=== PATIENT | male | born 1990 | race American Indian/Alaskan Native ===

== ENCOUNTER 2020-11-07 01:08 | Emergency (ER) | payer SELFPAY ==
[2020-11-07] MEDS ORDERED: PENICILLIN G BENZATHINE 1.2 MILLION UNIT/2 ML INJ IM ONE (04:24)
--- NOTE | 2020-11-07 04:27 | Emergency Department Report ---
ED General Adult HPI - General Chief complaint: Urogenital-Male Stated complaint: GROIN SWELLING/IRRITATION Time Seen by Provider: 11/07/20 04:17 Source: patient Mode of arrival: Ambulatory Limitations: No Limitations - History of Present Illness Initial comments: 30-year-old male patient presents to the emergency department with complaints of left testicular pain and penile lesions starting 2 days ago. No preceding fall, trauma, or injury. Patient is sexually active. He does not use barrier protection. He has not taken any medication or used any topical treatments. Denies fever, chills, nausea, vomiting, diarrhea, abdominal pain, penile discharge, painful urination, hematuria. Denies all other complaints at this time. - Related Data Allergies Allergy/AdvReac Type Severity Reaction Status Date / Time No Known Allergies Allergy Unverified 11/07/20 02:54 ED Review of Systems ROS: Stated complaint: GROIN SWELLING/IRRITATION Other details as noted in HPI Other: GENERAL: Negative for fever. CARDIOVASCULAR: Negative for chest pain. PULMONARY: Negative for shortness of breath. GASTROINTESTINAL: Negative for abdominal pain. GENITOURINARY: Positive for testicular pain. MUSCULOSKELETAL: Negative for back pain. NEUROLOGICAL: Negative for headache. INTEGUMENTARY: Positive for lesions. ED Past Medical Hx - Past Medical History Previous Medical History?: Yes Hx Asthma: Yes - Surgical History Past Surgical History?: No - Social History Smoking Status: Current Every Day Smoker Substance Use Type: Marijuana ED Physical Exam - General Limitations: No Limitations - Other Other exam information: General: Awake, appropriately interactive, no acute distress. Neck: Supple. Full range of motion intact. Cardiovascular: Normal peripheral perfusion. Pulmonary: No respiratory distress. Patient is speaking normally without use of accessory muscles. 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 Two painless lesions to the penile shaft. Left scrotal tenderness. No testicular asymmetry. No blood or discharge at the urethral meatus. No regional lymphadenopathy. Skin: No apparent rashes or lesions. Neurological: No facial asymmetry. Speech is clear. Follows commands. Patient is alert and oriented. Musculoskeletal: Moves all four extremities spontaneously with normal range of motion. Psych: Cooperative. Appropriate mood and affect. ED Course Vital Signs 11/07/20 01:52 Temperature 98.5 F Pulse Rate 53 L Respiratory 16 Rate Blood Pressure 123/62 O2 Sat by Pulse 100 Oximetry ED Medical Decision Making - Medical Decision Making Differential diagnosis including but not limited to: testicular torsion, epididymitis, orchitis, hydrocele, syphilis, chancroid On reevaluation, patient remains stable. Testicular ultrasound is within normal limits. History and exam findings concerning for primary syphilis. STD testing is unavailable at this facility. Patient treated empirically with IM Bicillin per CDC guidelines. No clinical indication for further diagnostic work-up on an emergent basis. Patient will be discharged home with referral to primary care provider and local health department for outpatient testing/treatment. Patient expressed understanding and is agreeable to plan of care. Disease transmission precautions discussed. Strict return precautions provided. Repeat exam is unremarkable and benign. History, exam, diagnostic testing, and current condition do not suggest worrisome pathology to warrant further testing, continued ED treatment, admission, or surgical evaluation at this point. Given the low probability of a significant medical illness, it would be more likely to result in harm than benefit to perform further testing at this stage. Discussed findings, presumptive diagnosis, need for follow-up and specific signs/symptoms that should prompt immediate return to the emergency department. Instructions were explained in detail to the patient in addition to giving written discharge information. Patient expressed understanding and was given the opportunity to ask questions, all of which were satisfactorily answered prior to discharge home. Critical care attestation.: If time is entered above; I have spent that time in minutes in the direct care of this critically ill patient, excluding procedure time. ED Disposition Clinical Impression: Lesion of penis Disposition: DC-01 TO HOME OR SELFCARE Is pt being admited?: No Does the pt Need Aspirin: No Condition: Stable Instructions: Safe Sex Additional Instructions: Use barrier protection when engaging in sexual intercourse. Follow-up with primary care provider/[facility] this week. Call tomorrow to schedule appointment. See referral information below, Return to the emergency department immediately for new or worsening symptoms. Referrals: LAINEY ANTHONY MD [Primary Care Provider] - 3-5 Days SANG SUN MD [Staff Physician] - 3-5 Days [facility] [Outside] - 3-5 Days [facility] [Provider Group] - 3-5 Days Time of Disposition: 05:56
--- NOTE | 2020-11-07 05:23 | Ultrasound Report ---
ULTRASOUND SCROTUM INDICATION / CLINICAL INFORMATION: left testicular pain/tenderness. COMPARISON: None available. FINDINGS -- RIGHT TESTIS: Size = 4.8 cm. - Appearance: No significant abnormality. - Cyst or Mass: None. - Color Doppler Flow: No significant abnormality. EPIDIDYMIS: No significant abnormality. HYDROCELE: None. VARICOCELE: None demonstrated. FINDINGS -- LEFT TESTIS: Size = 4.3 cm. - Appearance: No significant abnormality. - Cyst or Mass: None. - Color Doppler Flow: No significant abnormality. EPIDIDYMIS: No significant abnormality. HYDROCELE: None. VARICOCELE: None demonstrated. ADDITIONAL FINDINGS: None. IMPRESSION: No significant abnormality. No evidence of torsion. Signer Name: Artur Hernandez MD Signed: 11/07/2020 5:19 AM Workstation Name: [id number]
[2020-11-07 06:14] VITALS: BP 122/62
== END 2020-11-07 06:16 | disposition home or self-care (01) ==
LOC: ED 01:08
DX: N50.9 Disorder of male genital organs, unspecified (principal); J45.909 Unspecified asthma, uncomplicated; F17.200 Nicotine dependence, unspecified, uncomplicated; F12.90 Cannabis use, unspecified, uncomplicated
CPT/HCPCS: 93975; 96372; 99283; J0561